=== PATIENT | female | born 1980 | race African-American/Black ===

== ENCOUNTER → 2016-05-30 | Outpatient (CLI) | payer OTHER ==
[2016-05-30 08:50] LABS: HEMATOCRIT 34.2 % (35.0-46.0); MEAN CELL VOLUME 83.5 FL (80.0-100.0); MEAN CORPUSCULAR HEMOGLOBIN 28.8 PG (27.0-34.0); MEAN CORPUSCULAR HGB CONC 34.5 % (32.0-36.0); PLATELET COUNT 272 TH/MM3 (150-450); RED BLOOD COUNT 4.09 MIL/MM3 (4.00-5.30); RED CELL DISTRIBUTION WIDTH 13.8 % (11.6-17.2); REVIEW FLAG FINAL; WHITE BLOOD COUNT 7.8 TH/MM3 (4.0-11.0)
[2016-05-30 09:46] LABS: FERRITIN 8 NG/ML (8-252); TRANSFERRIN IRON PROFILE 289 MG/DL (200-360)
== END ==
LOC: CLAB 08:00
PROVIDERS: ATTEND Family Medicine
DX: E55.9 Vitamin D deficiency, unspecified (principal); Z79.899 Other long term (current) drug therapy
CPT/HCPCS: 36415; 82607; 82728; 82746; 83540; 83550; 85027

== ENCOUNTER → 2016-09-25 | Outpatient (CLI) | payer OTHER ==
[~2016-09-25] MED LIST: HYDR12.56 PO; METO50TA PO
[2016-09-25 09:15] LABS: HEMATOCRIT 36.6 % (35.0-46.0); MEAN CORPUSCULAR HEMOGLOBIN 28.3 PG (27.0-34.0); MEAN CORPUSCULAR HGB CONC 33.7 % (32.0-36.0); PLATELET COUNT 303 TH/MM3 (150-450); RED BLOOD COUNT 4.35 MIL/MM3 (4.00-5.30); RED CELL DISTRIBUTION WIDTH 14.3 % (11.6-17.2); REVIEW FLAG FINAL; WHITE BLOOD COUNT 9.1 TH/MM3 (4.0-11.0)
[2016-09-25 10:02] LABS: FERRITIN 14 NG/ML (8-252); HDL CHOLESTEROL 40.6 MG/DL (40.0-60.0); LDL CHOLESTEROL 149 MG/DL (0-99); TRANSFERRIN IRON PROFILE 287 MG/DL (200-360)
== END ==
LOC: CLAB 08:33
PROVIDERS: ATTEND Family Medicine
DX: E55.9 Vitamin D deficiency, unspecified (principal); Z79.899 Other long term (current) drug therapy
CPT/HCPCS: 36415; 80061; 82306; 82607; 82728; 82746; 83540; 83550; 85027